=== PATIENT | male | born 1995 | race Caucasian/White ===

== ENCOUNTER 2016-11-28 08:50 | Emergency (ER) | payer OTHER ==
[~2016-11-28] VITALS: Ht 180.3 cm; Wt 74.8 kg
[2016-11-28 08:55] VITALS: BP 137/74
--- NOTE | 2016-11-28 09:15 | ED SKIN/ALLERGY COMPLAINT ---
History of Present Illness General Chief Complaint: Skin Rash/ Abcess Stated Complaint: ?SKIN INFECTION/ABSCESS ON HEAD Source: patient Exam Limitations: no limitations Vital Signs & Intake/Output Vital Signs & Intake/Output Vital Signs Date Time Temp Pulse Resp B/P Pulse O2 O2 Flow FiO2 Ox Delivery Rate 11/28 0957 Room Air Room Air 11/28 0855 97.2 74 18 137/74 99 Room Air Allergies Coded Allergies: NO KNOWN ALLERGIES (08/04/11) Reconcile Medications Amoxicillin 500 MG TABLET 1 TAB PO TID CELLULITIS Ketoconazole 2 % SHAMPOO 1 MARISSA TOP 2XWK PRN DERMATITIS USE FOR 8 WEEKS Naproxen (Naprosyn) 500 MG TABLET 1 TAB PO BID PRN pain Sulfamethoxazole/Trimethoprim (Bactrim Ds Tablet) 800 MG-160 MG TABLET 1 TAB PO BID CELLULITIS Triage Note: PT STATES THAT HE HAS RASH ON THE TOP OF HIS HEAD, STARTED ABOUT 8 MONTHS AGO AND THEY PUT HIM ON ABT, STATES THAT PAIN HAS BEEN CONSTANT BUT BEARABLE, BUT NOW STATES THAT PAIN HAS BEEN INCREASING, PT NOTED WITH HAIR LOSS TO THE AREA AND RAISED ? MULTIPLE ABCESS Triage Nurses Notes Reviewed? yes Onset: Gradual Duration: 8 MONTHS Timing: recent history Severity: moderate Severity Numbers: 7 Possible Factors: no cause identified No Modifying Factors: none HPI: Patient is a 21-year-old male with no known medical history presenting to the emergency department with chief complaint of pain, rash on his scalp that thing going on for the past 8 months. Patient reports that it seemed to improve after he was prescribed antibiotics several months ago but then came back. Denies any trauma. Denies any fevers or chills. No nausea vomiting chest pain or shortness of breath. Palpation makes it worse nothing seems to make it better. He reports that sometimes he has discharge in the area. He has reports hAIR loss in that area. (RONALDO MORRIS) Past History Travel History Traveled to [place] past 21 day No Medical History Any Pertinent Medical History? 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 No (RONALDO MORRIS) Review of Systems Review of Systems Constitutional: Reports: no symptoms. Comments Review of systems: See HPI, All other systems negative. Constitutional, no chills fever or weight loss HEENT: No visual changes no sore throat no congestion Cardiovascular: No chest pain ,palpitation , orthopnea or ankle swelling Skin, no jaundice Respiratory: No dyspnea cough sputum or hemoptysis GI: No nausea no vomiting : No dysuria No hematuria Muscle skeletal: no back pain, no neck pain, Neurologic: No numbness no confusion Psych: No stress anxiety Immunology: No splenectomy or history of AIDS (RONALDO MORRIS) Physical Exam Physical Exam General Appearance: well developed/nourished, no apparent distress, alert, awake , comfortable Comments: Well-developed well-nourished person in no acute distress HEENT: Pupils equally round and reactive to light and accommodation. Nose is atraumatic. Neck: Normal inspection Back: Nontender Cardiovascular: normal JVP Respiratory: No respiratory distress. Extremity: No edema Neuro: Alert oriented x3 Skin: Erythematous, raised, nonfluctuant lesion scattered over the posterior aspect of the scalp, tender to palpation, white heads present and some of the lesions. Area of erythematous raised lesions and approximately 10-12 cm in the posterior aspect of her scalp. There is alopecia noted in this area. Lesions range from a size of a 1 cm in diameter to 3 cm in diameter and theY are confluent Psych: Mood and affect is normal, memory and judgment is normal. (RONALDO MORRIS) Progress Differential Diagnosis: FOLLICULITIS, DERMATITIS, SOBER RAKE DERMATITIS, NONSPECIFIC DERMATITIS, ABSCESS, CELLULITIS Plan of Care: Orders Procedure Date/time Status HEAD & NECK CULTURE 11/28 915 Active Microbiology 11/28 938 HEAD/NECK: Head/Neck Culture - RECD 11/28 938 HEAD/NECK: Gram Stain - RECD Comments: Patient has had scalp condition as a month. Patient will be started on 2 different antibiotics and it appears to be infectious in nature as there is purulent discharge. Patient also started on ketoconazole shampoo. He will follow up with dermatology. Educated on not wearing his hats. (RONALDO MORRIS) Departure Departure Time of Disposition: 916 Disposition: HOME OR SELF CARE Condition: Stable Clinical Impression Primary Impression: Folliculitis Referrals: PATIENT HAS NO PRIMARY CARE DR (PCP/Family) DAKOTAH AVILA,DIOMEDES Fiore Additional Instructions: Follow-up with dermatology call today to make an appointment. Take antibiotics as prescribed. Use shampoo as directed. Take naproxen as prescribed for pain. Return for worsening symptoms or concerns. 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 I have also reviewed all the pertinent lab results and diagnostic results. I agree with the findings and the plan of care as documented in the PA's/MIXED LIVEST[employer] F[employer]ER's documentation. x I have reviewed the ED Record and agree with the PA's/MIXED [employer]IVEST[employer] F[employer]ER's documentation. [] Additions or exceptions (if any) to the PAs/MIXED LIVEST[employer] FARMER's note and plan are summarized below: [] (LANE AVILA,STACI) Procedures Incision and Drainage Site: SCALP Blade Size: NEEDLE ASPIRATION, 25 GAUGE I & D Procedure: Yes: betadine prep, sterile drapes applied, sterile dressing applied. No: wick placed. Progress: TOLERATED PROCEDURE WELL (RONALDO MORRIS)
[2016-11-28] MEDS ORDERED: AMOXICILLIN500 M3 PO (09:27)
[2016-11-28] MEDS ORDERED: BACTRIM DS TAB1 EACH PO (09:27)
[2016-11-28] MEDS ORDERED: KETOCONAZOLE120 ML TOP (09:27)
[2016-11-28] MEDS ORDERED: NAPROSYN500 M1 PO (09:27)
== END 2016-11-28 09:58 ==
LOC: ERH 08:50
DX: L73.9 Follicular disorder, unspecified (principal)
CPT/HCPCS: 87070; 87147; J1885